=== PATIENT | male | born 1960 | race Hispanic/Latino ===

== ENCOUNTER 2017-05-11 11:08 | Outpatient (CLI) | payer BC ==
--- NOTE | 2017-05-14 13:20 | PET Report ---
PET/CT:05/11/17 11:08:00 CLINICAL: Right renal cancer restaging. Status post right nephrectomy. RADIOPHARMACEUTICAL: 13.389mCi F18-FDG. COMPARISON: MRI abdomen 03/22/11 TECHNIQUE- Following intravenous injection of F-18 FDG and an approximately 60 minute uptake period, CT and PET images from the mid skull to the upper thighs were acquired with the patient in the fasted state. No contrast was administered. The CT protocol used for this PET CT study is designed for attenuation correction and anatomic localization of PET abnormalities. This software quality test engineer CT is not desired to produce and cannot replace, [id number] diagnostic CT scans with specific imaging protocols for different body parts and indications. Plasma glucose at the time of this test: 86g/dl. The standardized uptake values (SUV) are normalized to patient body weight and indicate the highest activity concentration (SUV max) in a given disease site. FINDINGS: Brain--Physiologic FDG uptake in the visualized regions of the brain. Neck--Physiologic FDG uptake . Chest--Physiologic FDG uptake in mediastinal blood pool and myocardium. Lungs--No abnormal uptake. No pulmonary nodule or mass. Pleura/pericardium--No abnormal uptake. Thoracic nodes--No abnormal uptake. Hepatobiliary--No abnormal uptake. Liver background SUV mean, as a reference for comparing FDG studies, is 2.7 . No liver mass. Spleen--No abnormal uptake. Pancreas--No abnormal uptake. Adrenal Glands--No abnormal uptake. Kidneys/Ureters/Bladder--No abnormal uptake. Status post right nephrectomy. Abdominopelvic Nodes--No abnormal uptake. Bowel/Peritoneum/Mesentery--No abnormal uptake. Pelvic organs--No abnormal uptake. Bones/Soft Tissues--No abnormal uptake. No suspicious bone lesion. IMPRESSION- Negative study.No evidence of disease recurrence or metastasis.
== END 2017-05-11 11:09 | disposition home or self-care (01) ==
LOC: PET 11:08
PROVIDERS: ATTEND Urology
DX: N28.89 Other specified disorders of kidney and ureter (principal); E11.9 Type 2 diabetes mellitus without complications; Z90.5 Acquired absence of kidney
CPT/HCPCS: 78815; 82962; A9552

== ENCOUNTER 2018-10-08 11:33 | Emergency (ER) | payer SELFPAY ==
[2018-10-08] MEDS ORDERED: NORCO 5/325 PO ONE (12:15)
--- NOTE | 2018-10-08 12:32 | Emergency Department Report ---
ED Chest Pain HPI - General Chief Complaint: Chest Pain Stated Complaint: CHEST PAIN Time Seen by Provider: 10/08/18 11:54 Source: patient, EMS Mode of arrival: Stretcher Limitations: No Limitations - History of Present Illness Initial Comments: 58 year old male with a past medical history of pulmonary embolism 6-7 years ago, anxiety, and pacemaker placement for bradycardia presents to the hospital complaints of right-sided chest pain since 7am. Patient complaining of right- sided chest pain or feels like a muscle soreness. Pain escalates to a sharp pain going to the shoulder. Pain is intermittent. Is with the palpation. Patient has chronic shortness of breath that is unchanged. He denies nausea, vomiting, or diaphoresis. Patient received aspirin and nitroglycerin spray in route to the hospital. Patient denies a history of CAD/stent placement. 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 He states he has not on Eliquis because he could not afford it. He has an appointment in [address] Barry adoption agent at [facility] to have his pacemaker checked. He currently only takes meds for reflux and an anxiety medication that starts wtih a "M". Patient was taken aspirin 81 mg but ran out last week. Severity scale (0 -10): 5 - Related Data Home Medications Medication Instructions Recorded Confirmed Last Taken Mirtazapine [Remeron 15mg TAB] 15 mg PO QHS 10/08/18 10/08/18 Unknown Pantoprazole [Protonix] 40 mg PO QDAY 10/08/18 10/08/18 Unknown Previous Rx's Medication Instructions Recorded Last Taken Type traMADol [Ultram 50 MG tab] 50 mg PO Q6HR PRN #20 tablet 10/08/18 Unknown Rx Allergies Allergy/AdvReac Type Severity Reaction Status Date / Time No Known Allergies Allergy Unverified 05/11/17 11:09 Heart Score - HEART Score History: Slightly suspicious EKG: Normal Age: 45-65 Risk factors: 1-2 risk factors Troponin: < normal limit HEART Score: 2 ED Review of Systems ROS: Stated complaint: CHEST PAIN Other details as noted in HPI Comment: All other systems reviewed and negative ED Past Medical Hx - Past Medical History Previous Medical History?: Yes Hx Pulmonary Embolism: Yes Additional medical history: anxiety - Surgical History Past Surgical History?: Yes Hx Pacemaker: Yes Additional Surgical History: nephrectomy - Social History Smoking Status: Current Every Day Smoker Substance Use Type: Marijuana - Medications Home Medications: Home Medications Medication Instructions Recorded Confirmed Last Taken Type Mirtazapine [Remeron 15mg TAB] 15 mg PO QHS 10/08/18 10/08/18 Unknown History Pantoprazole [Protonix] 40 mg PO QDAY 10/08/18 10/08/18 Unknown History traMADol [Ultram 50 MG tab] 50 mg PO Q6HR PRN #20 tablet 10/08/18 Unknown Rx ED Physical Exam - General Limitations: No Limitations - Other Other exam information: General: No acute distress Head: Atraumatic normocephalic Eyes: Normal appearance, pupils equal reactive to light, extraocular movements intact ENT: Normal oropharynx Neck: Normal appearance, no C-spine tenderness, no meningismus Chest: Clear to auscultation bilaterally, no wheezes, rales, or crackles, right upper lateral chest wall tenderness adjacent to shoulder Cardiovascular: Regular rate and rhythm Abdomen: Soft, nondistended, nontender, no rebound or guarding, normal bowel sounds Back: Normal inspection, nontender Extremity: Normal inspection, no deformity, full range of motion, full range of motion of shoulder, no calf tenderness or leg edema Neuro: Alert and oriented 3, speech clear, no gross motor or sensory deficit Psychiatric: Normal affect Skin: No rash, warmth, or erythema ED Course Vital Signs 10/08/18 10/08/18 10/08/18 11:41 11:45 12:00 Temperature 98.1 F Pulse Rate 72 63 60 Respiratory 13 20 Rate Blood Pressure 108/74 109/68 O2 Sat by Pulse 98 95 Oximetry 10/08/18 10/08/18 10/08/18 12:20 12:30 13:00 Temperature Pulse Rate 62 60 Respiratory 20 13 13 Rate Blood Pressure 101/71 96/66 O2 Sat by Pulse 97 98 Oximetry 10/08/18 10/08/18 10/08/18 13:30 14:00 14:30 Temperature Pulse Rate 60 70 60 Respiratory 14 16 15 Rate Blood Pressure 103/69 104/70 117/69 O2 Sat by Pulse 97 96 98 Oximetry 10/08/18 10/08/18 15:13 15:30 Temperature Pulse Rate 60 Respiratory 11 L Rate Blood Pressure 123/74 120/75 O2 Sat by Pulse 99 98 Oximetry ED Medical Decision Making - Lab Data Result diagrams: 10/08/18 12:18 10/08/18 12:18 Lab Results 10/08/18 10/08/18 10/08/18 Range/Units 12:18 12:18 12:18 WBC 6.0 (4.5-11.0) K/mm3 RBC 4.35 (3.65-5.03) M/mm3 Hgb 13.3 (11.8-15.2) gm/dl Hct 38.0 (35.5-45.6) % MCV 87 (84-94) fl MCH 31 (28-32) pg MCHC 35 H (32-34) % RDW 13.1 L (13.2-15.2) % Plt Count 175 (140-440) K/mm3 Lymph % (Auto) 31.4 (13.4-35.0) % [place] % (Auto) 8.0 H (0.0-7.3) % Eos % (Auto) 0.9 (0.0-4.3) % Baso % (Auto) 1.0 (0.0-1.8) % Lymph # 1.9 (1.2-5.4) K/mm3 [place] # 0.5 (0.0-0.8) K/mm3 Eos # 0.1 (0.0-0.4) K/mm3 Baso # 0.1 (0.0-0.1) K/mm3 Seg Neutrophils % 58.7 (40.0-70.0) % Seg Neutrophils # 3.5 (1.8-7.7) K/mm3 D-Dimer 396.69 H (0-234) ng/mlDDU Sodium 140 (137-145) mmol/L Potassium 4.4 (3.6-5.0) mmol/L Chloride 105.7 (98-107) mmol/L Carbon Dioxide 23 (22-30) mmol/L Anion Gap 16 mmol/L BUN 15 (9-20) mg/dL Creatinine 1.2 (0.8-1.5) mg/dL Estimated GFR > 60 ml/min BUN/Creatinine Ratio 13 % Glucose 94 (75-100) mg/dL Calcium 9.7 (8.4-10.2) mg/dL Troponin T < 0.010 (0.00-0.029) ng/mL 10/08/18 Range/Units 14:11 WBC (4.5-11.0) K/mm3 RBC (3.65-5.03) M/mm3 Hgb (11.8-15.2) gm/dl Hct (35.5-45.6) % MCV (84-94) fl MCH (28-32) pg MCHC (32-34) % RDW (13.2-15.2) % Plt Count (140-440) K/mm3 Lymph % (Auto) (13.4-35.0) % [place] % (Auto) (0.0-7.3) % Eos % (Auto) (0.0-4.3) % Baso % (Auto) (0.0-1.8) % Lymph # (1.2-5.4) K/mm3 [place] # (0.0-0.8) K/mm3 Eos # (0.0-0.4) K/mm3 Baso # (0.0-0.1) K/mm3 Seg Neutrophils % (40.0-70.0) % Seg Neutrophils # (1.8-7.7) K/mm3 D-Dimer (0-234) ng/mlDDU Sodium (137-145) mmol/L Potassium (3.6-5.0) mmol/L Chloride (98-107) mmol/L Carbon Dioxide (22-30) mmol/L Anion Gap mmol/L BUN (9-20) mg/dL Creatinine (0.8-1.5) mg/dL Estimated GFR ml/min BUN/Creatinine Ratio % Glucose (75-100) mg/dL Calcium (8.4-10.2) mg/dL Troponin T < 0.010 (0.00-0.029) ng/mL - EKG Data -: EKG Interpreted by Me (atrial paced rhythm) EKG shows normal: axis (qrs 24), QRS complexes (qrsd 94), ST-T waves (no stemi) - Radiology Data Radiology results: report reviewed CHEST 1 VIEW INDICATION / CLINICAL INFORMATION: sob cp. COMPARISON: None available. FINDINGS: SUPPORT DEVICES: Pacemaker is noted HEART / MEDIASTINUM: No significant abnormality. LUNGS / PLEURA: No significant pulmonary or pleural abnormality.. No pneumothorax. ADDITIONAL FINDINGS: No significant additional findings. IMPRESSION: 1. No acute findings. CTA CHEST WITH CONTRAST INDICATION : Right chest pain and shortness of breath for one day. History of pulmonary embolus. TECHNIQUE: Axial imaging performed th rough the chest, with contrast bolus timing set to maximize opacification of the pulmonary arteries. Sagittal and coronal reformatted images. 3-plane MIP reformatted images were obtained. All CT scans at this location are performed using CT dose reduction for ALARA by means of automated exposure control. 100 mL of intravenous contrast administered. COMPARISON: 03/09/2011 CT chest with contrast. FINDINGS: Bolus: Contrast bolus timing is adequate. PTE: No filling defect is present to suggest PTE. Mediastinum: Heart and great vessels appear normal. No pathologic mediastinal adenopathy. A 2-lead pacemaker device is in position. Lungs: Lungs are clear. Bones: Degenerative changes in the spine with nothing acute. Upper abdomen: Limited imaging of the upper abdomen shows nothing acute. IMPRESSION: Negative for PTE. Clear lungs. - Medical Decision Making Patient presents with right sided chest pain with a reproducible component. Mild elevation of d-dimer without signs of hypoxia, tachycardia, and a CT angiogram chest is negative for pulmonary embolus. EKG shows a paced rhythm without ST elevation and troponin negative 2. Patient will be treated sy mptomatically for musculoskeltal chest pain and follow-up with PMD advised. - Differential Diagnosis muscle strain, shoulder strain, PE, costochondritis, pneumothorax Critical Care Time: No Critical care attestation.: If time is entered above; I have spent that time in minutes in the direct care of this critically ill patient, excluding procedure time. ED Disposition Clinical Impression: Musculoskeletal chest pain, Pacemaker Disposition: - TO HOME OR SELFCARE Is pt being admited?: No Does the pt Need Aspirin: No Condition: Stable Instructions: Chest Pain (ED) Additional Instructions: Take the medications as prescribed. Follow-up with your doctor or with a doctor/clinic provided. Return is symptoms worsen as indicated by the discharge instructions. Tramadol may cause drowsiness therefore do not drive or operate heavy machinery while taking tramadol Prescriptions: traMADol [Ultram 50 MG tab] 50 mg PO Q6HR PRN #20 tablet PRN Reason: Pain Referrals: MARIELA THOMAS MD [Primary Care Provider] - 3-5 Days Time of Disposition: 15:53
[2018-10-08 12:34] LABS: Basophils # (Auto) 0.1 K/mm3 (0.0-0.1); Eosinophils # (Auto) 0.1 K/mm3 (0.0-0.4); Eosinophils % (Auto) 0.9 % (0.0-4.3); Hemoglobin 13.3 gm/dl (11.8-15.2); Lymphocytes # (Auto) 1.9 K/mm3 (1.2-5.4); Lymphocytes % (Auto) 31.4 % (13.4-35.0); Mean Corpuscular HGB Conc 35 % (32-34); Mean Corpuscular Volume 87 fl (84-94); Monocytes # (Auto) 0.5 K/mm3 (0.0-0.8); Platelet Count 175 K/mm3 (140-440); Red Blood Count 4.35 M/mm3 (3.65-5.03); Red Cell Distribution Width 13.1 % (13.2-15.2)
--- NOTE | 2018-10-08 12:52 | XRay Report ---
CHEST 1 VIEW INDICATION / CLINICAL INFORMATION: sob cp. COMPARISON: None available. FINDINGS: SUPPORT DEVICES: Pacemaker is noted HEART / MEDIASTINUM: No significant abnormality. LUNGS / PLEURA: No significant pulmonary or pleural abnormality.. No pneumothorax. ADDITIONAL FINDINGS: No significant additional findings. IMPRESSION: 1. No acute findings. Signer Name: Dino Saenz MD Signed: 10/08/2018 12:47 PM Workstation Name: [id number]
[2018-10-08 12:58] LABS: BUN/Creatinine Ratio 13; Blood Urea Nitrogen 15 mg/dL (9-20); Calcium 9.7 mg/dL (8.4-10.2); Hemolysis Index 3
--- NOTE | 2018-10-08 15:15 | Cat Scan Report ---
CTA CHEST WITH CONTRAST INDICATION : Right chest pain and shortness of breath for one day. History of pulmonary embolus. TECHNIQUE: Axial imaging performed through the chest, with contrast bolus timing set to maximize opa cification of the pulmonary arteries. Sagittal and coronal reformatted images. 3-plane MIP reformatte d images were obtained. All CT scans at this location are performed using CT dose reduction for ALAR A by means of automated exposure control. 100 mL of intravenous contrast administered. COMPARISON: 03/09/2011 CT chest with contrast. FINDINGS: Bolus: Contrast bolus timing is adequate. PTE: No filling defect is present to suggest PTE. Mediastinum: Heart and great vessels appear normal. No pathologic mediastinal adenopathy. A 2-lead pacemaker device is in position. Lungs: Lungs are clear. Bones: Degenerative changes in the spine with nothing acute. Upper abdomen: Limited imaging of the upper abdomen shows nothing acute. IMPRESSION: Negative for PTE. Clear lungs. Signer Name: Brown Lopez Jr, MD Signed: 10/08/2018 3:11 PM Workstation Name: [id number]
[2018-10-08 16:16] VITALS: BP 125/78
== END 2018-10-08 16:10 | disposition home or self-care (01) ==
LOC: ED 11:33
DX: R07.89 Other chest pain (principal); F41.9 Anxiety disorder, unspecified; F17.200 Nicotine dependence, unspecified, uncomplicated; F12.10 Cannabis abuse, uncomplicated; Z79.899 Other long term (current) drug therapy; Z90.89 Acquired absence of other organs; Z95.0 Presence of cardiac pacemaker; Z86.711 Personal history of pulmonary embolism
CPT/HCPCS: 36415; 71045; 71275; 80048; 84484; 85025; 85379; 93005; 93010; 99285; Q9967